=== PATIENT | male | born 1990 | race African-American/Black ===

== ENCOUNTER 2019-07-28 13:56 | Emergency (ER) | payer MEDICAID, OTHER ==
[~2019-07-28] VITALS: Ht 160 cm; Wt 59.0 kg
[2019-07-28 19:10] VITALS: BP 96/57
== END 2019-07-28 20:18 | disposition home or self-care (01) ==
LOC: ER 14:01
DX: N48.22 Cellulitis of corpus cavernosum and penis (principal)